=== PATIENT | female | born 1965 | race Caucasian/White ===

== ENCOUNTER 2021-01-31 10:59 | Emergency (ER) | payer SELFPAY ==
--- NOTE | 2021-01-31 11:49 | RAD REPORT ---
EXAM DESCRIPTION: RAD - Knee Right 3 View - 01/31/2021 11:29 am CLINICAL HISTORY: PAINfall COMPARISON: No comparisons FINDINGS: No fracture, dislocation or periosteal reaction.No joint effusion seen. Medial compartment mild narrowing is present. There is mild narrowing of the patellofemoral joint space. Marginal spurs are seen in the patella. Minimal medial and lateral compartment marginal spurring with minimal spurr ing along the intercondylar notch and tibial spine. IMPRESSION: Mild knee joint degenerative change as detailed. No acute bone or joint finding seen. Clinical concerns for internal derangement or occult bony injury could be further assessed with MR im aging.
--- NOTE | 2021-01-31 12:09 | EDPHYS ---
Physician Documentation [facility] Name: Caridad Ortiz Age: 55 yrs Sex: Female : 1965 Arrival Date: 01/31/2021 Time: 11:05 Bed 17 Private MD: ED Physician Isaac Jerez HPI: 01/31 11:34 This 55 yrs old Female presents to ER via Ambulatory with complaints of Knee pm1 Pain. 11:34 The patient presents with pain, that is acute. The complaints affect the right knee. pm1 Context: The problem was sustained outdoors, resulted from the patient tripping, crack on sidewalk. Onset: The symptoms/episode began/occurred 1 week(s) ago. Modifying factors: The symptoms are alleviated by elevating leg, rest. the symptoms are aggravated by weight bearing. Associated signs and symptoms: Pertinent positives: swelling, of the right knee, Pertinent negatives calf tenderness, fever, numbness, tingling. Treatment prior to arrival includes: elevation of the extremity, over the counter medications. Severity of symptoms: in the emergency department the symptoms are actually worse. The patient has not experienced similar symptoms in the past. The patient has not recently seen a physician. 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 - Social history:: Smoking status: Patient reports the use of cigarette tobacco products, smokes one-half pack cigarettes per day. ROS: 11:34 Constitutional: Negative for fever, chills, and weight loss, Cardiovascular: Negative pm1 for chest pain, palpitations, and edema, Respiratory: Negative for shortness of breath, cough, wheezing, and pleuritic chest pain. 11:34 Skin: Negative for injury, rash, and discoloration, Neuro: Negative for headache, weakness, numbness, tingling, and seizure. 11:34 MS/extremity: Positive for pain, swelling, of the right knee, Negative for decreased range of motion, deformity, paresthesias. 11:34 All other systems are negative. Exam: 11:34 Constitutional: This is a well developed, well nourished patient who is awake, alert, pm1 and in no acute distress. Head/Face: Normocephalic, atraumatic. 11:34 Skin: Warm, dry with normal turgor. Normal color with no rashes, no lesions, and no evidence of cellulitis. 11:34 Eyes: Exam is negative for acute changes, Periorbital structures: appear normal, Extraocular movements: no acute changes. 11:34 ENT: Exam is negative for acute changes, Mouth: Lips: normal, Oral mucosa: normal, pink and intact, moist. 11:34 Cardiovascular: Rate: normal, Rhythm: regular, Pulses: no pulse deficits are appreciated. 11:34 Respiratory: Exam negative for acute changes, respiratory distress, shortness of breath. 11:34 Musculoskeletal/extremity: Extremities: grossly normal except: noted in the right knee: effusion, There is no evidence of ecchymosis, tenderness, No pain present with external and internal rotation of lower leg. Negative drawer, valgus and varus stress test. Patient has active FROM to right knee without pain, ROM: full active range of motion, in the right leg, full passive range of motion, in the right leg, Circulation is intact in all extremities. 11:34 Neuro: Exam negative for acute changes, Orientation: is normal, Mentation: is normal, Motor: is normal, moves all fours. Vital Signs: 11:09 BP 127 / 89; Pulse 81; Resp 17 S; Temp 98.1(TE); Pulse Ox 99% on R/A; Weight 102.06 kg jd3 (R); Height 5 ft. 3 in. (160.02 cm) (R); Pain 8/10; 11:42 BP 130 / 83; Pulse 70; Resp 14; Pulse Ox 100% on R/A; vg1 11:09 Body Mass Index 39.86 (102.06 kg, 160.02 cm) jd3 MDM: 11:11 Patient medically screened. pm1 12:07 Data reviewed: vital signs. Data interpreted: Pulse oximetry: on room air is 100 %. pm1 Interpretation: normal. Counseling: I had a detailed discussion with the patient and/or guardian regarding: the historical points, exam findings, and any diagnostic results supporting the discharge/admit diagnosis, radiology results, the need for outpatient follow up, a orthopedic surgeon, to return to the emergency department if symptoms worsen or persist or if there are any questions or concerns that arise at home. 12:10 ED course: EDGE WORKER aware reviewed. pm1 01/31 11:12 Order name: Knee Right 3 View XRAY; Complete Time: 11:56 pm1 01/31 11:57 Order name: Crutches; Complete Time: 12:17 pm1 01/31 11:57 Order name: Knee Immobilizer; Complete Time: 12:23 pm1 Administered Medications: No medications were administered Disposition: 01/31/21 12:08 Discharged to Home. Impression: Contusion of right knee. - Condition is Stable. - Discharge Instructions: Crutch Use, Knee Immobilizer, Knee Pain. - Prescriptions for Tylenol- Codeine #3 300-30 mg Oral Tablet - take 2 tablets by ORAL route every 6 hours As needed; 20 tablet. - Medication Reconciliation Form, Thank You Letter, Antibiotic Education, Prescription Opioid Use form. - Follow up: Emergency Department; When: As needed; Reason: Worsening of condition. Follow up: Private Physician; When: 2 - 3 days; Reason: Recheck today's complaints, Continuance of care, Re-evaluation by your physician. - Problem is new. - Symptoms have improved. Signatures: Dispatcher [employer] EDMS Zackary Gaines, [employer] CONSULTANT pm1 Jeison Boateng, RN RN jd3 Venita Larkin RN RN vg1 Corrections: (The following items were deleted from the chart) 12:24 12:08 01/31/2021 12:08 Discharged to Home. Impression: Contusion of right knee. vg1 Condition is Stable. Forms are Medication Reconciliation Form, Thank You Letter, Antibiotic Education, Prescription Opioid Use. Follow up: Emergency Department; When: As needed; Reason: Worsening of condition. Follow up: Private Physician; When: 2 - 3 days; Reason: Recheck today's complaints, Continuance of care, Re-evaluation by your physician. Problem is new. Symptoms have improved. pm1
--- NOTE | 2021-01-31 12:09 | ER ---
Nurse's Notes [facility] Name: Caridad Ortiz Age: 55 yrs Sex: Female : 1965 Arrival Date: 01/31/2021 Time: 11:05 Bed 17 [facility] MD: Diagnosis: Contusion of right knee Presentation: 01/31 11:07 Chief complaint: Patient states: "I fell while walking on the sidewalk about a week ago jd3 and hurt my right knee.". Coronavirus screen: At this time, the client does not indicate any symptoms associated with coronavirus-19. Ebola Screen: Patient negative for fever greater than or equal to 101.5 degrees Fahrenheit, and additional compatible Ebola Virus Disease symptoms. Initial Sepsis Screen: Does the patient meet any 2 criteria? No. Patient's initial sepsis screen is negative. Does the patient have a suspected source of infection? No. Patient's initial sepsis screen is negative. Risk Assessment: Do you want to hurt yourself or someone else? Patient reports no desire to harm self or others. Onset of symptoms was January 25, 2021. 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 - Social history:: Smoking status: Patient reports the use of cigarette tobacco products, smokes one-half pack cigarettes per day. Screenin:42 Abuse screen: Denies threats or abuse. Nutritional screening: No deficits noted. vg1 Tuberculosis screening: No symptoms or risk factors identified. Fall Risk Fall in past 12 months (25 points). No secondary diagnosis (0 pts). No IV (0 pts). Ambulatory Aid- None/Bed Rest/Nurse Assist (0 pts). Gait- Normal/Bed Rest/Wheelchair (0 pts) Mental Status- Oriented to own ability (0 pts). Total Bond Fall Scale indicates Low Risk Score (25-44 pts). Fall prevention measures have been instituted. Side Rails Up X 2 Placed close to Nursing Station. Assessment: 11:32 General: Appears in no apparent distress. comfortable, Behavior is calm, cooperative. vg1 Pain: Complains of pain in right knee Pain currently is 0 out of 10 on a pain scale. at worst was 7 out of 10 on a pain scale. Pain began Pt stated fell about a week ago onto Right knee. Neuro: Level of Consciousness is awake, alert, obeys commands, Oriented to person, place, time, situation. Cardiovascular: Patient's skin is warm and dry. Respiratory: Airway is patent Respiratory effort is even, unlabored. GI: No signs and/or symptoms were reported involving the gastrointestinal system. : No signs and/or symptoms were reported regarding the genitourinary system. EENT: No signs and/or symptoms were reported regarding the EENT system. Derm: Skin is intact, is healthy with good turgor. Musculoskeletal: Swelling present in right knee. 12:05 Reassessment: ECP at beside discussing care with patient. zb 12:24 Reassessment: Patient appears in no apparent distress at this time. Patient and/or vg1 family updated on plan of care and expected duration. Pain level reassessed. Patient is alert, oriented x 3, equal unlabored respirations, skin warm/dry/pink. Vital Signs: 11:09 BP 127 / 89; Pulse 81; Resp 17 S; Temp 98.1(TE); Pulse Ox 99% on R/A; Weight 102.06 kg jd3 (R); Height 5 ft. 3 in. (160.02 cm) (R); Pain 8/10; 11:42 BP 130 / 83; Pulse 70; Resp 14; Pulse Ox 100% on R/A; vg1 11:09 Body Mass Index 39.86 (102.06 kg, 160.02 cm) jd3 ED Course: 11:05 Patient arrived in ED. mr 11:08 Triage completed. jd3 11:10 Arm band placed on. jd3 11:11 Zackary Gaines NP is PHCP. pm1 11:11 Isaac Jerze MD is Attending Physician. pm1 11:20 Venita Larkin, RN is Primary Nurse. vg1 11:29 Knee Right 3 View XRAY In Process Unspecified. EDMS 11:43 Patient has correct armband on for positive identification. Bed in low position. Call vg1 light in reach. Side rails up X 1. 12:24 No provider procedures requiring assistance completed. Patient did not have IV access vg1 during this emergency room visit. Administered Medications: No medications were administered Outcome: 12:08 Discharge ordered by . pm1 12:24 Discharged to home ambulatory, with crutches. vg1 12:24 Condition: stable 12:24 Discharge instructions given to patient, Instructed on discharge instructions, follow up and referral plans. medication usage, crutch walking, Demonstrated understanding of instructions, follow-up care, medications, crutch walking, Prescriptions given X 1. 12:24 Patient left the ED. vg1 Signatures: Dispatcher [employer] EDLA AwaisFrancesca mr GainesZackary, [employer] PS[employer] CLINICAL NURSE SPECIALIST pm1 Jeison Boateng, RN RN Venita Orona RN RN vg1 Shaylee Torres RN RN zb Corrections: (The following items were deleted from the chart) 11:10 11:09 Pulse 81bpm; Resp 17bpm; Spontaneous; Pulse Ox 99% RA; Temp 98.1F Temporal; jd3 102.06 kg Reported; Height 5 ft. 3 in. Reported; BMI: 39.8; Pain 8/10; jd3
[2021-01-31 12:38] VITALS: TEMP 98.1
[2021-01-31 12:43] VITALS: BP 130/83; O2SAT 100
== END 2021-01-31 12:24 | disposition home or self-care (01) ==
LOC: ER 10:59
DX: S80.01XA Contusion of right knee, initial encounter (principal); F17.210 Nicotine dependence, cigarettes, uncomplicated
CPT/HCPCS: 99283